=== PATIENT | male | born 2000 | race Two or more races ===

== ENCOUNTER 2024-06-21 10:52 | Emergency (ER) | payer MEDICAID, SELFPAY ==
[2024-06-21 10:54] VITALS: BMI 24.4
[2024-06-21 11:01] VITALS: BP 143/85; PULSE 76; RESP 18; TEMP 36.9; O2SAT 97
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
[2024-06-21 12:45] VITALS: BP 131/83; PULSE 62; RESP 18; TEMP 36.8; O2SAT 97
== END 2024-06-21 12:52 | disposition home or self-care (01) ==
PROVIDERS: Emergency Provider Emergency Medicine; PCP Family Medicine
DX: M54.50 Low back pain, unspecified (principal)
CPT/HCPCS: 72040; 72100; 99283